=== PATIENT | female | born 1960 | race Caucasian/White ===

== ENCOUNTER → 2023-07-30 | Outpatient (CLI) | payer MEDICAID, SELFPAY ==
--- NOTE | 2023-07-30 11:40 | NEURO ---
NCS and/or EMG Patient Report Ordering Doctor: Cal Raya DATE OF SERVICE: 07/30/23 Clinical Summary: 63 year old female patient presenting with complaints of right wrist pain. She has a history of cysts in the vicinity of the wrist. This EMG/NCS was performed to evaluate for right carpal tunnel syndrome. Nerve Conduction Studies Summary: The right median motor conduction velocity was reduced in the forearm segment. Otherwise, nerve conduction studies were within normal range. Needle Examination Summary: Needle examination of select muscles of the right upper extremity was normal. Impression: There is no electrodiagnostic evidence of a right median mononeuropathy at the wrist (carpal tunnel syndrome). Multi Select Codes Neurology Neurology Interp Codes: 96323-48 Musc test done w/n test comp (interp) (1) and 59620-23 Nrv cndj test 7-8 studies (interp)
== END | disposition home or self-care (01) ==
LOC: PSN 10:28
PROVIDERS: PCP Physician Assistant; Referring Provider Student in an Organized Health Care Education/Training Program; Visit Provider Student in an Organized Health Care Education/Training Program
DX: M25.531 Pain in right wrist (principal); R20.2 Paresthesia of skin
CPT/HCPCS: 95886; 95910